=== PATIENT | female | born 1990 | race Caucasian/White ===

== ENCOUNTER → 2019-11-03 13:45 | Outpatient (CLI) | payer OTHER, SELFPAY ==
[2019-11-03 15:41] LABS: Color, Urine Yellow (Yellow); Glucose, Dipstick Normal (Normal); Ketone-Dipstick Negative (Negative); Leukocyte Esterase-Dipstick 25 /ul (Negative); Nitrite-Dipstick Negative (Negative); Occult Blood-Urine Negative /ul (Negative); Protein-Dipstick Negative (Negative); Urine Bilirubin Dipstick Negative (Negative); Urine Clarity Sl. Cloudy (Clear); Urine Urobilinogen Normal (Normal)
[2019-11-03 15:45] LABS: Absolute Lymphocyte Count 2.79 X10^3/uL (0.83-4.51); Absolute Neutrophil Count 5.1 X10^3/uL (2.0-7.7); Basophil# 0.02 X10^3/uL; Basophil% 0.2 % (0-1); Eosinophil# 0.08 X10^3/uL; Eosinophils% 0.9 % (0-5); Hematocrit 40.9 % (37-47); Hemoglobin 13.8 g/dL (12.0-15.0); Lymphocyte # 2.79 X10^3/ul (4.0); Lymphocyte % 32.2 % (19-41); Mean Corp Hgb Conc 33.7 g/dL (32-36); Mean Corpuscular Hgb 30.5 pg (27.0-32.0); Mean Corpuscular Volume 90.3 fL (81-99); Mean Platelet Vol. 12.4 fl (6.2-12.0); Monocyte# 0.67 X10^3/uL; Monocyte% 7.7 % (0-10); NRBC Flagged by Analyzer 0 % (0-5); Neutrophil # 5.08 X10^3/uL (2.7-7.7); Neutrophil % 58.7 % (47-70); Platelet Count 219 K/mm3 (150-450); RBC Distribution Width CV 12.5 % (11.6-14.6); RBC Distribution Width SD 41.1 fl (35.1-43.9); Red Blood Count 4.53 M/mm3 (4.2-5.4); White Blood Count 8.7 K/mm3 (4.4-11.0)
[2019-11-03 16:12] LABS: Thyroid Stim Hormone (TSH) 0.85 uIU/mL (0.358-3.74)
[2019-11-04 13:11] LABS: HIV - WCH Non-Reactive (Nonreactive); Hepatitis B Surface Antigen Non-Reactive (Nonreactive); Hepatitis C Antibody Non-Reactive (Nonreactive); Rubella IgG 1.8 IU/mL
[2019-11-07 14:08] LABS: Chlamydia By Nucleic Acid AMP Negative (Negative)
[2019-11-08 04:52] LABS: Gonococcus By Nucleic Acid AMP Negative (Negative)
[2019-11-10 06:20] LABS: Prenatal RPR NONREACTIVE (NONREACTIVE)
== END ==
PROVIDERS: Visit Provider Obstetrics & Gynecology
DX: Z34.82 Encounter for supervision of other normal pregnancy, second trimester (principal)
CPT/HCPCS: 81002; 84443; 85025; 86703; 86762; 86803; 87340; 87491; 87591

== ENCOUNTER → 2020-02-09 14:08 | Outpatient (CLI) | payer OTHER, SELFPAY ==
[2020-02-09 16:02] LABS: Hemoglobin 12.4 g/dL (12.0-15.0); Mean Corp Hgb Conc 32.6 g/dL (32-36); Mean Corpuscular Hgb 30.5 pg (27.0-32.0); Mean Corpuscular Volume 93.6 fL (81-99); Platelet Count 213 K/mm3 (150-450); RBC Distribution Width CV 12.6 % (11.6-14.6); RBC Distribution Width SD 43.6 fl (35.1-43.9); Red Blood Count 4.06 M/mm3 (4.2-5.4); White Blood Count 8.2 K/mm3 (4.4-11.0)
[2020-02-09 16:08] LABS: Glucose Challenge Gest 1H 50g 104 mg/dL (70-140)
== END ==
PROVIDERS: Visit Provider Obstetrics & Gynecology
DX: Z34.83 Encounter for supervision of other normal pregnancy, third trimester (principal)
CPT/HCPCS: 36415; 82950; 85027

== ENCOUNTER → 2020-04-02 16:16 | Outpatient (CLI) | payer OTHER, SELFPAY | PROVIDERS: Visit Provider Obstetrics & Gynecology | DX: Z36.85 Encounter for antenatal screening for Streptococcus B (principal) | CPT/HCPCS: 87081 ==

== ENCOUNTER 2020-05-07 07:00 | Inpatient (IN) | payer SELFPAY, OTHER ==
[2020-05-07] VITALS (15 sets, daily range): BP systolic 103–120; BP diastolic 52–70; PULSE 71–104; TEMP 36.4–37.4; O2SAT 96–98; BMI 34.8
[2020-05-07] MEDS: Lactated Ringers 1,000 ML 50 ML IV (07:30)
[2020-05-07] MEDS: Oxytocin 30 units/NS 500 ml 30 UNITS/500 ML IV.SOLN IV (07:47)
[2020-05-07 08:08] LABS: Absolute Lymphocyte Count 1.05 X10^3/uL (0.83-4.51); Basophil# 0.01 X10^3/uL; Basophil% 0.1 % (0-1); Eosinophil# 0.02 X10^3/uL; Eosinophils% 0.2 % (0-5); Hematocrit 39.6 % (37-47); Hemoglobin 12.5 g/dL (12.0-15.0); Lymphocyte # 1.05 X10^3/ul (4.0); Lymphocyte % 11.9 % (19-41); Mean Corp Hgb Conc 31.6 g/dL (32-36); Mean Corpuscular Hgb 28.5 pg (27.0-32.0); Mean Corpuscular Volume 90.2 fL (81-99); Mean Platelet Vol. 11.8 fl (6.2-12.0); Monocyte# 0.65 X10^3/uL; Monocyte% 7.4 % (0-10); NRBC Flagged by Analyzer 0 % (0-5); Neutrophil # 7.04 X10^3/uL (2.7-7.7); Neutrophil % 79.9 % (47-70); Platelet Count 215 K/mm3 (150-450); RBC Distribution Width SD 46.8 fl (35.1-43.9); Red Blood Count 4.39 M/mm3 (4.2-5.4); White Blood Count 8.8 K/mm3 (4.4-11.0)
--- NOTE | 2020-05-07 12:07 | PCM.HP.BLA ---
History and Physical Date of Admission: 05/07/20 ACOG ANTEPARTUM RECORD - HISTORY AND PHYSICAL (05/07/2020) Name: RYAN CARRILLO History of this : This is a 29 year old [id number] presents at 41 wks + 0 days gestation for postdates induction. OB Physician: Abdirahman Lee MD [facility]'s Physician: Dr Ari Larson ...................................................................... : 1990 Age: 29 Address: [address] [place] [address] Phone: (h) [phone] ([phone] Insurance Carrier: [facility] CardFlight [facility] [id number] Emergency Contact: YAMIL CARRILLO [phone] ...................................................................... Final KERI: 04/30/20 By Ultrasound: 20 weeks PARITY: (G-Total Pregnancies P-Fullterm,Premature,Induced AB,Spont AB, Ectopics, Multiple,Living) KERI CONFIRMATION: By LMP: 07/25/19 Final KERI: 04/30/20 OB PROBLEM LIST: STRONG family history blood clots/PE s. Both parents, mat grandparents, aunts & uncles. Brother w PE in [facility] ICU 2019. 2nd baby PP infection, iv antibiotics. In hosp > 1 week. First delivery at [place]. ALLERGIES: No Known Drug Allergies MEDICATIONS: 28 mg-800 mcg tablet daily Supplement (s) [No Strength] 4Life Transfer Factor Classic SOCIAL HISTORY: Smoking - Quit smoking one year ago. Alcohol Use - holidays not while Diet - balanced Diet, caffeine < 2 drinks per day and water tries for 10 mugs day or at gatorade Lifestyle - moderate stress lifestyle Exercise - Busy with family, Enc walking 20 min daily. 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 [employer] Job Description - Illicit Drug Use - denies use of street drugs Sexual Activity - Residence - lives with Place of - [place] Spouse-Sig Other Name - Yamil Spouse-Sig Other Occupation - construction Spouse-Sig Other Phone No - [phone] Children Name(s) - Juan A Gary, Raji Collier PRIOR DELIVERY HISTORY DEL DATE GEST LAB WT LB WT OZ TYPE ANES LABOR TX 10 Nov 21 41 7 8 2 Vag Epidural No Mar 26 41 3 8 1 Vag Epidural No ANTEPARTUM FLOW CHART VISIT RTC FU F F OH U U DATE WK MD WKS HT PN HR M SS BP ED WT OH GL D EF ST __ ____ ___ __ __ ___ __ __ __ ___ __ __ __ ___ __ 25 Feb 40 JMW 1 38 V + De 116/60 sl 212 tr - ft 80 -3 18 Feb 39 JMW 1 38 V + + 132/76 sl 208 ft 50 hi 11 Feb 38 JM 1 38 V + + 104/62 0 205 tr ne cl 01 Apr JM 1 37 V + + 100/58 sl 202 - - Mar JMW 1 36 V + + 114/64 0 199 tr ne 14 Mar JMW 2 34 + + 114/60 0 198 Mar 08 JMW 3 31 + + 114/58 sl 192 - - 03 Mar 05 JMW 3 28 + + 122/62 0 190 - 1+ 05 Jan 30 JMW 4 24 + + 116/60 0 183 - - 07 Dec 26 CH 4 on + 118/64 0 172 - - 27 Oct 20 CH 5 + ? 102/56 0 156 - - ANTEPARTUM NOTE(S): May 03 2020: NST OK; induce Thursday: Ctxs-mild, Good FM Apr 19 2020: Apr 09 2020: see note Apr 02 2020: GBS Done and Good FM Mar 22 2020: Good FM Feb 27 2020: Periodic Heartburn,Good FM Feb 09 2020: CBC,OGCT Today,Continues with periodic low pelvic pressure Jan 12 2020: Good FM Dec 13 2020: Nov 02 2020: COMPREHENSIVE ANTEPARTUM NOTE(S): Apr 19 2020: Ryan is here for PNV. States she is ready to have this baby. Ready at home as well. Feeling well with good FM. No edema noted presently but does admit to being thick in her lower legs/ankles half way through day. No concerns today. Urine dipped tr and neg. LSS Apr 19 2020: 38wks, discussed IOL. Failed sweeping membranes today. Agrees to at least 41wk IOL. JM Apr 09 2020: H taken to OB Apr 09 2020: Doing well, declines cervix ck today. GBS done and negative. Reviewed FM, SROM, and labor. LMT Apr 09 2020: 37wk, GBS neg. Pt with family hx of clots, no testing done. Both parents on blood thinners. Pt with no hx of clots, never was on blood thinners in previous and no plan this for meds. Apr 02 2020: Ryan is here for PNV. LARC offered and signed, declined. GBS today. Feeling reallly good except that some nausea has returned. Still able to eat and keep fluids down. Ready at home for delivery. Having good FM. Urine dipped tra and neg. S Mar 22 2020: Ryan is here for PNV. Very happy and excited about upcoming . States she is feeling really good. Had a fall this past weekend. States she is still having good FM. No LOF or vag bleeding. No edema present but states she does have some swelling of ankles occ at end of day. After 2 attempts, unable to leave us a urine sample. No concerns for today. S Feb 09 2020: Ryan presents here today for PNV with CBC,OGCT today and reports she continues with periodic low pelvic pressure and groin pain. We discussed Maternity Support Belt and resting prn to elevate legs and feet. Verbalized understanding. [place] Jan 12 2020: Marilee is her today for her PNV, 24 wks + 3 days. She is doing well no complaints. No edema, +FM. Medications and allergies reviewed today. [facility] Dec 14 2019: Marilee is her today for her PNV. She is doing well No edema. +FM. Reports nausea every once in awhile. C/O heartburn after every meal. She cannot do Tums. She cannot find Zantac in stores. No other concerns or complaints expressed today. [facility] Dec 14 2019: Brought in urine from home today. Anatomy US reveals female fetus 39th%, FHR 145, with all anatomy visualized and WNL. Placenta is anterior and she states this explains why she feels movements just in the morning and evening when she is relaxing, compared to her boys which she felt a lot. Discussed placenta being 2.7cm from cervical OS. Denies any bleeding/cramping. Explained about placenta moving up as she grows, but will recheck at 28 weeks to guarantee. Is going on vacation next week and very excited. Understands Covid precuaitons. Will return in 4 weeks for routine PNV. - Nov 07 2019: Reports feeling little flutters at night right before bed. FHR today 155. Is feeling much better now with no concerns. Would like to wait 5 weeks for next appt to have anatomy US and PNV with music writer d/t scheduling. Does not want to meet other providers in the office. Low risk, okay to wait 5 weeks for next appt. - Nov 03 2019: Marilee is her today for her PNV. She is doing good. No edema. FM ?. Nausea has subsided. Rx and allergies reviewed today. No questions or concerns expressed today. [facility] Oct 10 2019: Ryan is a 29 year old G 3 P 2 with KERI 04-30-20 planning her first delivery at [facility] probably without an epidural, using Dr Ari Larson for post discharge ped care and to breastfeed. 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 She does home parties with [employer] some evenings. Yamil, her works in construction. They are pleased about the . Ryan had a PP infection with iv antibiotics and remained in OB > one week w her second baby. Relates having PPD (no meds) It was flu season, I couldn't see my first son and it was pretty hard. She nursed for about 7 months and ten months. Ryan has NKA to drugs, food, latex or the environment. She denies street drug use, stopped smoking about a year ago and drinks alcohol on holidays but not while pg. Her diet sounds balanced without drinking milk. She does eat yogurt and cottage cheese. Ryan drinks some tea and fills a mug about ten times daily, sipping on the water cont. She is very active with her home and family. Enc to walk 20 min daily. She is having morning sickness almost daily and is starting w constipation. She takes some special juices to keep her regular. Suggested Colace prn. She has the paper with OTC meds ok to take during pg. Warning signs in pg reviewed as well as wearing her seatbelt ALWAYS and low on her abdomen, reaching the office after hours, lifting restriction of 25# and the importance of protein in her diet w understanding voiced. She has a copy of What to Expect. They have no cats but she is aware of litter box issues. Her personal medical history includes chickenpox, UTIs, pneumonia. US delayed until 20 weeks. labs to be done at her appt later in October. Of note is Ryan's STRONG family history of multiple blood clots and PE including both parents, maternal grandparents, aunts and uncles and her brother who was in [facility] ICU in 2019. Ryan reports she has never had a blood clot but is aware of the s/s. Enc to call if any concerns or questions. Visit took approx 45 min. Tamara MARCOS. Oct 06 2019: Ryan is bieng seen for missed menses. Pt is new to facility. . 29 years old. UPT in office is positive. LMP 07/25/19. Pt is about 10 weeks and 3 days. KERI 04/30/20. Pt has been struggling with nausea. She states 10/04/19 she was unable to keep any food or water down. Pt has not tried anything for nausea, encouraged and reviewed otc medications she can take for nausea. Pt has not had a pap since her 6 week check with her first child. Urine cultures to be done today. information reviewed today and given to pt. Medications and allergies are up to date. AM Oct 06 2019: See above. Missed menses. Cannot pee in office, will give her a cup to take home. Both boys were born at [facility] at 41.5 weeks and 41 weeks. Had epidurals for both boys after stalling around 6cm. SIster is Mary Carrillo and her friend is Ryan Carrillo as well. SHe would like to make all of her appts with Ryan.Declining first trimester US and would just lke anatomy scan. Will get GC/CT with urine next visit. NOB packet reviewed and CNM care with OB collaboration discussed. Does have a hx of depression, but states fine now. Just reports lots of nausea and Thursday she couldn't even get out of bed. Hasn't tried anything. N/V handout reviewed. Will get Vitamin B6 and Unisom to try and advised to call if not working and Rx can be sent in. States understanding. Head to toe negative. Will return in 4 weeks per her wishes. - REVIEW OF SYSTEMS: GENERAL - Denies fever, or chills SKIN - Denies rash, new skin lesions, or change in moles EYES - Denies blurred vision, or change in visual acuity EARS - Denies ear pain, or difficulty hearing NOSE - Denies nasal congestion, discharge, or bleeding MOUTH - Denies sore throat, or difficulty swallowing NECK - Denies pain or swelling RESPIRATORY - Denies shortness of breath, cough, wheezing CARDIOVASCULAR - Denies palpitations, chest pain, orthopnea, PND, peripheral edema, syncope or claudication GASTROINTESTINAL - Denies nausea, vomiting, diarrhea, constipation, Denies abdominal pain, melena and or bright red blood GENITOURINARY - Denies dysuria, frequency of urination, urgency, or hesitancy MUSCULOSKELETAL - Denies joint or muscle pain, or back pain NEUROLOGICAL - Denies localized numbness, weakness, or tingling PSYCHIATRIC - Denies depression, anxiety, substance abuse or suicide attempts ENDOCRINE - Denies heat or cold intolerance, weight loss or gain, increasing thirst HEMATO-IMMUNOLOGIC - Denies easy bruising, bleeding, oral ulcerations or recurrent infections GENETICS SCREENING: Age 35+ years: No Thalassemia: No Neural Tube Defect: No Down Syndrome: Yes, 's sister ENRICO-SACHS: No Sickle Cell Disease: No Hemophilia: No Musc. Dystrophy: No Cystic Fibrosis: No-declines screening Dia Chorea: No Mental Retardation: No Fragile X: No Other genetic: No Other defects: No SABs/still births: No Drugs since LMP: No INFECTION HISTORY: High risk AIDS: No High risk Hepatitis: No Exposed to TB: No Exposed to Herpes: No Rash/viral illness since LMP: No History of STD: No MENSTRUAL HISTORY: *Menses Amount/Duration: 4-5 DAYSMenses Regularity: RegularFrequency: monthly* PAST SUMMARY: PARITY: 1. Total Pregnancies............ 3 2. Full Term Pregnancies........ 2 3. Premature.................... 0 4. Abortions - Induced.......... 0 5. Abortions - Spontaneous...... 0 6. Ectopics..................... 0 7. Multiple Births.............. 0 8. Living Children.............. 2 PAST #1: Date of :.................. 11/16/14 Gestation Weeks:................ 41 Length of labor(hours):......... 7 Sex:............................ M Weight-lbs:............... 8 Weight-oz:................ 2 Type of Delivery:............... Vag Type of Anesthesia:............. Epidural Place of Delivery:.............. [place] Treatment of Labor?:.... No Comment: NO PAST #2: Date of :.................. 04/05/17 Gestation Weeks:................ 41 Length of labor(hours):......... 3 Sex:............................ M Weight-lbs:............... 8 Weight-oz:................ 1 Type of Delivery:............... Vag Type of Anesthesia:............. Epidural Place of Delivery:.............. [place] Treatment of Labor?:.... No Comment: PP INFECTION X 7D HOSP. PHYSICAL EXAMINATION General Appearence: 29 yo female in no acute distress Vital Signs: AF, VSS Heart: RRR without rubs or gallops Lungs: CTA x 2 Breasts: deferred Abdomen: gravid Pelvis: Cervix: 2/50 Presentation: cephalic Station: HIGH Fetus: Size: AGA Movement: present Heart: present LAB TEST(S) ORDERED SINCE:08/04/19 02/09/2020 GLUCOSE CHALLENGE GEST 1H 50G 02/09/2020 CBC-COMPLETE BLOOD CNT NO DIFF 11/10/2019 RPR 11/08/2019 CHLAMYDIA/GC SUSAN APTIMA 11/04/2019 RUBELLA IGG 11/04/2019 HIV - [facility] 11/04/2019 HEPATITIS C ANTIBODY 11/04/2019 HEPATITIS B SURFACE ANTIGEN 11/03/2019 URINALYSIS, ROUTINE (DIPSTICK) 11/03/2019 THYROID STIM HORMONE (TSH) 11/03/2019 T AND S-NO CHARGE W/PNP 11/03/2019 CBC W/DIFF, AUTOMATED 05/07/2020 TYPE AND SCREEN 05/07/2020 CBC W/DIFF, AUTOMATED 04/05/2020 RULE OUT BETA STREP (GRP. B) == ==== Order Observation Description Value Ref_Range A* Site == ==== Labor [facility]~[address] [place], [address]~ TYPE AND SCRE AB SCREEN GEL NEGATIVE ML CBC W/DIFF, AUT NOTE FIGUER[place] CBC W/DIFF, AUT WBC 8.8 K/mm3 4.4-11.0 ML CBC W/DIFF, AUT RBC 4.39 M/mm3 4.2-5.4 ML CBC W/DIFF, AUT HGB 12.5 g/dL 12.0-15.0 ML CBC W/DIFF, AUT HCT 39.6 37-47 ML CBC W/DIFF, AUT MCV 90.2 fL 81-99 ML CBC W/DIFF, AUT MCH 28.5 pg 27.0-32.0 ML CBC W/DIFF, AUT MCHC 31.6 g/dL 32-36 L ML CBC W/DIFF, AUT RDW CV 14.0 11.6-14.6 ML CBC W/DIFF, AUT RDW SD 46.8 fl 35.1-43.9 H ML CBC W/DIFF, AUT PLT 215 K/mm3 150-450 ML CBC W/DIFF, AUT MPV 11.8 fl 6.2-12.0 ML CBC W/DIFF, AUT NEUT% 79.9 47-70 H ML CBC W/DIFF, AUT LY% 11.9 19-41 L ML CBC W/DIFF, AUT MONO% 7.4 0-10 ML CBC W/DIFF, AUT EO% 0.2 0-5 ML CBC W/DIFF, AUT BASO% 0.1 0-1 ML CBC W/DIFF, AUT IG% 0.500 0.0-0.9 ML IG% - Immature Granulocytes (promyelocytes, myelocytes and metamyelocytes) > 1% indicates that a LEFT SHIFT is Present. CBC W/DIFF, AUT ABSOLUTE NEUT 7.0 X10 3/uL 2.0-7.7 ML CBC W/DIFF, AUT ABSOLUTE LYMPH 1.05 X10 3/uL 0.83-4.51 ML CBC W/DIFF, AUT NUCLEATED RBC 0 0-5 ML RULE OUT BETA S NOTE FIGUEROA GLUCOSE CHALLEN NOTE FIGU[place]OA GLUCOSE CHALLEN GLU GEST 50G 1H 104 mg/dL 70-140 ML CBC-COMPLETE BL NOTE FIGUEROA CBC-COMPLETE BL WBC 8.2 K/mm3 4.4-11.0 ML CBC-COMPLETE BL RBC 4.06 M/mm3 4.2-5.4 L ML CBC-COMPLETE BL HGB 12.4 g/dL 12.0-15.0 ML CBC-COMPLETE BL HCT 38.0 % 37-47 ML CBC-COMPLETE BL MCV 93.6 fL 81-99 ML CBC-COMPLETE BL MCH 30.5 pg 27.0-32.0 ML CBC-COMPLETE BL MCHC 32.6 g/dL 32-36 ML CBC-COMPLETE BL RDW CV 12.6 % 11.6-14.6 ML CBC-COMPLETE BL RDW SD 43.6 fl 35.1-43.9 ML CBC-COMPLETE BL PLT 213 K/mm3 150-450 ML CBC-COMPLETE BL MPV 12.0 fl 6.2-12.0 ML RPR NOTE FIGU[place]OA RPR RPR NONREACTIVE NONREACTIVE ML CHLAMYDIA/GC NA NOTE FIGU[place] CHLAMYDIA/GC NA CHLAMY,NUC ACID Negative Negative LC CHLAMYDIA/GC NA GC BY NUC ACID Negative Negative LC Performed at: = - [facility] [id number] Patient Partner: Poonam Anglin MD, Phone: [phone] HEPATITIS C ANT NOTE [place] HEPATITIS C ANT HEPATITIS C AB Non-Reactive Nonreactive ML Non Reactive: < 0.8 Equivocal: >/= 0.8 to < 1.0 Reactive: >/= 1.0 The CDC recommends that a reactive/equivocal HCV antibody result be followed up by the HCV Nucleic Acid Amplification test ([id number]) HEPATITIS B SHINE NOTE [place] HEPATITIS B SHINE HEPB SURFACE AG Non-Reactive Nonreactive ML HIV - [facility] NOTE [facility] HIV - [facility] HIV - [facility] Non-Reactive Nonreactive ML RUBELLA IGG NOTE [place] RUBELLA IGG RUBELLA IGG 1.8 IU/mL ML Antibody results Interpretation of Immune Status < 5 IU/ml Presumed Non-immune 5 - < 10 IU/ml Equivocal > or = 10 IU/ml Presumed Immune Reason for Type AND Screen/Red Cells: Surgery? N [facility]~[address] [place], [address]~ T AND BLOOD TYPE GEL O POSITIVE N ML T AND AB SCREEN GEL NEGATIVE N ML THYROID STIM HO NOTE [place] THYROID STIM HO TSH 0.85 uIU/mL 0.358-3.74 ML CBC W/DIFF, AUT NOTE FIG[place] CBC W/DIFF, AUT WBC 8.7 K/mm3 4.4-11.0 ML CBC W/DIFF, AUT RBC 4.53 M/mm3 4.2-5.4 ML CBC W/DIFF, AUT HGB 13.8 g/dL 12.0-15.0 ML CBC W/DIFF, AUT HCT 40.9 % 37-47 ML CBC W/DIFF, AUT MCV 90.3 fL 81-99 ML CBC W/DIFF, AUT MCH 30.5 pg 27.0-32.0 ML CBC W/DIFF, AUT MCHC 33.7 g/dL 32-36 ML CBC W/DIFF, AUT RDW CV 12.5 % 11.6-14.6 ML CBC W/DIFF, AUT RDW SD 41.1 fl 35.1-43.9 ML CBC W/DIFF, AUT PLT 219 K/mm3 150-450 ML CBC W/DIFF, AUT MPV 12.4 fl 6.2-12.0 H ML CBC W/DIFF, AUT NEUT% 58.7 % 47-70 ML CBC W/DIFF, AUT LY% 32.2 % 19-41 ML CBC W/DIFF, AUT MONO% 7.7 % 0-10 ML CBC W/DIFF, AUT EO% 0.9 % 0-5 ML CBC W/DIFF, AUT BASO% 0.2 % 0-1 ML CBC W/DIFF, AUT IM GRAN % 0.300 % 0.0-0.9 ML IG% - Immature Granulocytes (promyelocytes, myelocytes and metamyelocytes) > 1% indicates that a LEFT SHIFT is Present. CBC W/DIFF, AUT ABSOLUTE NEUT 5.1 X10 3/uL 2.0-7.7 ML CBC W/DIFF, AUT ABSOLUTE LYMPH 2.79 X10 3/uL 0.83-4.51 ML CBC W/DIFF, AUT NRBC, FLAGGED 0 % 0-5 ML URINALYSIS, ROU NOTE [place] URINALYSIS, ROU COLOR Yellow Yellow ML URINALYSIS, ROU CLARITY Sl. Cloudy Clear ML URINALYSIS, ROU GLUCOSE, UR Normal mg/dl Normal ML URINALYSIS, ROU BILIRUBIN URINE Negative mg/dL Negative ML URINALYSIS, ROU KETONE UR Negative mg/dl Negative ML URINALYSIS, ROU SP.GR. DIPSTX 1.010 1.002-1.030 ML URINALYSIS, ROU PH UR 7.0 5.0 - 8.0 ML URINALYSIS, ROU PROT DIPSTX Negative mg/dl Negative ML URINALYSIS, ROU UROBILI Normal mg/dl Normal ML URINALYSIS, ROU NITRITE UR Negative Negative ML URINALYSIS, ROU OCCULT BLOOD-UR Negative /ul Negative ML URINALYSIS, ROU LEUK ESTERASE 25 /ul Negative H ML O POSITIVE CHELSI Group B Beta Streptococcus is not isolated. == ==== Impression /Plan: 41 wks + 0 days intrauterine for postdate induction. Cervix too high for rupture. Will give pitocin. Preparations in progress for delivery.
[2020-05-07] MEDS: Lactated Ringers 500 ML 999 ML IV ×2 (13:01→20:38)
[2020-05-07] MEDS: 0.9% Saline Lock 10 ML Syringe IV (13:40)
[2020-05-07] MEDS: miSOPROStol 25 MCG TABLET PO ×2 (14:17→18:46)
[2020-05-08] VITALS (35 sets, daily range): BP systolic 96–139; BP diastolic 51–76; PULSE 64–100; RESP 16; TEMP 36.6–37.3; O2SAT 86–99
[2020-05-08] MEDS: Lactated Ringers 500 ML 999 ML IV (00:03)
[2020-05-08] MEDS: fentaNYL-bupivacaine (epidural) 100 ML BAG EPIDURAL (00:53)
[2020-05-08] MEDS: Lactated Ringers 1,000 ML 200 ML IV (03:05)
[2020-05-08] MEDS: Ondansetron 4 MG/2 ML Vial IV (03:30)
[2020-05-08] MEDS: Oxytocin 30 units/NS 500 ml 30 UNITS/500 ML IV.SOLN 334 UNITS IV (04:19)
--- NOTE | 2020-05-08 04:26 | PCM.OPRPT ---
Vaginal Delivery Maternal Presentation: Medically Indicated Induction Method of Induction: Pitocin, Cytotec Amniotic Membrane Rupture Type: Spontaneous Amniotic Fluid Description: Clear Final KERI: 04/30/20 Gestational age: 41 Weeks and 1 Days Date of Procedure: 05/08/20 Pre-Operative Diagnosis: Post dates intrauterine Post-Operative Diagnosis: Post dates intrauterine Surgery/ Procedure Performed: Spontaneous Vaginal Delivery Type of Anesthesia: Epidural Description of Procedure: Spontaneous vaginal delivery of viable infant female. Nuchal cord x1, delivered through, loose. Baby to mom. Cord clamped and cut. Spontaneous delivery of placenta. First degree laceration repaired in usual fashion, perineal. Right labial laceration repaired with figure of eight stitch. Hemostatic. EBL 300cc. A gender: Female (1 minute): 8 (5 minute): 9
--- NOTE | 2020-05-08 04:46 | NURSING ---
pt refused MMR
[2020-05-08] MEDS: 0.9% Saline Lock 10 ML Syringe IV (06:57)
[2020-05-09 00:03] VITALS: BP 92/50; PULSE 66; RESP 16; TEMP 36.6
[2020-05-09 00:05] VITALS: BP 92/50; PULSE 66
[2020-05-09 04:02] VITALS: BP 105/62; PULSE 71; RESP 16; TEMP 36.6
[2020-05-09 07:47] VITALS: BP 114/64; PULSE 67; PULSE 68; RESP 16; TEMP 36.6; O2SAT 97
--- NOTE | 2020-05-09 08:37 | PCM.PN.OB ---
Subjective: Patient without complaints. Breast-feeding going well. Wants to go home today. - Physical Exam Vitals/I&O's: Vital Signs Temp Pulse Resp BP Pulse Ox 98 F 67 16 114/64 97 05/09/20 07:47 05/09/20 07:47 05/09/20 07:47 05/09/20 07:47 05/09/20 07:47 Oxygen Delivery Method Room Air Weight: 209 lb 3.499 oz Body Mass Index (BMI) 34.8 Intake and Output for Last 24 Hours 05/07/20 05/08/20 05/09/20 23:59 23:59 23:59 Intake Total 1303.93 / 1305.93 1890.55 / 1890.55 Output Total 2500 / 2500 Balance 1303.93 / 1305.93 -609.45 / -609.45 Current Medications Acetaminophen (Acetaminophen 500 Mg Tablet) 1,000 mg PO Q8H PRN PRN PRN Reason: Pain Score 1-3 Bisacodyl (Bisacodyl 10 Mg Suppository) 10 mg RC UD PRN PRN Reason: If no BM Dibucaine (Dibucaine 30 Gm Tube) 1 applic TOPICAL TID PRN PRN; Protocol PRN Reason: Discomfort Hydrocortisone (Hydrocortisone 2.5% Crm) 1 applic TOPICAL TID PRN PRN; Protocol PRN Reason: Discomfort Ibuprofen (Ibuprofen 600 Mg Tablet) 600 mg PO Q6H PRN PRN PRN Reason: Pain Score 1-10 Ondansetron HCl (Ondansetron 4 Mg/2 Ml Vial) 4 mg IV Q4H PRN PRN PRN Reason: Nausea Senna/Docusate Sodium (Senna/Docusate Sodium 1 Tablet) 1 - 2 tablet PO DAILY PRN PRN PRN Reason: Constipation Simethicone (Simethicone 80 Mg Tablet) 80 mg PO PCHS PRN PRN Reason: Indigestion/Stomach pain Sodium Chloride (0.9% Saline Lock 10 Ml Syringe) 5 - 15 ml IV UD PRN PRN Reason: SALINE FLUSH Last Admin: 05/08/20 06:57 Dose: 10 ml Documented by: Zolpidem Tartrate (Zolpidem Tartrate 5 Mg Tablet) 5 mg PO QHS PRN PRN PRN Reason: Insomnia Medical Necessity - Tobacco Use Smoking Status: Former smoker Assessment/Plan Doing well day #1 status post routine spontaneous vaginal delivery. Will discharge to home with routine instructions.
--- NOTE | 2020-05-09 13:51 | DCINST_ITS ---
Discharge Diet: No Restrictions Discharge Activity: May Shower, May Take a Tub Bath May resume sexual activity in: 4-6 weeks Additional Activity Instructions:: Nothing in the vagina for 4-6 weeks. You may return to work/school in 6 weeks. Call your doctor if you observe: Inability to urinate, Inability to have a bowel movement, Using more than one pad per hour Additional Instructions: If you experience any of the following, contact your healthcare provider. * Bleeding that soaks a pad every hour for 2 hours * Fever 100.4 or higher * Unrelieved incision or abdominal pain * Swelling, redness, discharge or bleeding from your incision or episiotomy site * Your incision begins to separate * Problems urinating (including inability to urinate or burning while urinating). * Visual changes * Severe headache * Flu-like symptoms * Pain or redness in one of both of your breasts * Pain, warmth, tenderness or swelling in your legs, especially the calf area * Frequent nausea and vomiting * Symptoms of depression or anxiety If you experience any of the following, call 911 or go to the nearest Emergency Room. * Chest pain * Problems breathing * Seizure activity * Partial or complete paralysis of a body part, slurred speech, weakness or drooping of the face, or a sudden inability to walk or hold your balance Allergies/Adverse Reactions: Allergies No Known Allergies Allergy (Verified 05/07/20 07:23) Please Follow Up With: Abdirahman Lee MD - [phone] When: Call to make an appointment with your doctor in 6 weeks. Primary Care Physician: Ari Larson DO [Primary Care Provider] - Test Results: Test results from this visit will be discussed in further detail at your follow- up appointment, if applicable.
--- NOTE | 2020-05-09 13:51 | PCM.DCVAG ---
Discharge Diet: No Restrictions Discharge Activity: May Shower, May Take a Tub Bath May resume sexual activity in: 4-6 weeks Additional Activity Instructions:: Nothing in the vagina for 4-6 weeks. You may return to work/school in 6 weeks. Call your doctor if you observe: Inability to urinate, Inability to have a bowel movement, Using more than one pad per hour Additional Instructions: If you experience any of the following, contact your healthcare provider. Bleeding that soaks a pad every hour for 2 hours Fever 100.4 or higher Unrelieved incision or abdominal pain Swelling, redness, discharge or bleeding from your incision or episiotomy site Your incision begins to separate Problems urinating (including inability to urinate or burning while urinating). Visual changes Severe headache Flu-like symptoms Pain or redness in one of both of your breasts Pain, warmth, tenderness or swelling in your legs, especially the calf area Frequent nausea and vomiting Symptoms of depression or anxiety If you experience any of the following, call 911 or go to the nearest Emergency Room. Chest pain Problems breathing Seizure activity Partial or complete paralysis of a body part, slurred speech, weakness or drooping of the face, or a sudden inability to walk or hold your balance Allergies/Adverse Reactions: Allergies No Known Allergies Allergy (Verified 05/07/20 07:23) Please Follow Up With: Abdirahman Lee MD - [phone] When: Call to make an appointment with your doctor in 6 weeks. Primary Care Physician: Ari Larson DO [Primary Care Provider] - Test Results: Test results from this visit will be discussed in further detail at your follow-up appointment, if applicable.
[2020-05-09 13:54] VITALS: BP 116/76; PULSE 72; PULSE 75; RESP 18; TEMP 36.8; O2SAT 96; O2SAT 98
[2020-05-09 13:56] VITALS: BP 116/76; PULSE 77
== END 2020-05-09 17:00 | disposition home or self-care (01) | DRG 807 ==
PROVIDERS: Obstetrics & Gynecology; Admitting Provider Student in an Organized Health Care Education/Training Program; PCP Family Medicine; Visit Provider Student in an Organized Health Care Education/Training Program
DX: O48.0 Post-term pregnancy (principal); Z37.0 Single live birth; O42.02 Full-term premature rupture of membranes, onset of labor within 24 hours of rupture; O69.81X0 Labor and delivery complicated by cord around neck, without compression, not applicable or unspecified; O70.0 First degree perineal laceration during delivery; Z3A.41 41 weeks gestation of pregnancy; Z87.891 Personal history of nicotine dependence
CPT/HCPCS: 59025; 59050; 85025; 86850; 86900; 86901; 99218; J7120; A4216; G0378; J2405

== ENCOUNTER → 2020-06-11 | Outpatient (CLI) | payer OTHER, SELFPAY ==
[2020-05-07 07:20] VITALS: BMI 34.8
== END | disposition home or self-care (01) ==
LOC: LABSPEC 15:54
PROVIDERS: PCP Family Medicine; Visit Provider Obstetrics & Gynecology
DX: Z12.4 Encounter for screening for malignant neoplasm of cervix (principal)
CPT/HCPCS: 88175; G0145